=== PATIENT | male | born 1965 | race Hispanic/Latino ===

== ENCOUNTER 2021-01-29 14:26 | Emergency (ER) | payer BC, OTHER, SELFPAY ==
[2021-01-29 15:35] LABS: BASOPHILS % (AUTO) 0.4 % (0.0-5.0); EOSINOPHILS % (AUTO) 0.7 % (0.0-8.0); HEMATOCRIT 51.1 % (42-54); LYMPHOCYTES % (AUTO) 17.1 % (21.0-51.0); MEAN CORPUSCULAR HEMOGLOBIN 25.5 pg (27.0-33.0); MEAN CORPUSCULAR HGB CONC 33.1 g/dL (32.0-36.0); MONOCYTES % (AUTO) 7.6 % (3.0-13.0); NEUTROPHILS % (AUTO) 73.1 % (40.0-77.0); PLATELET COUNT (AUTO) 327 K/uL (130-400); RED BLOOD CELL COUNT(AUTO) 6.64 MIL/uL (4.50-6.20); RED CELL DISTRIBUTION WIDTH 14.9 % (11.0-15.5); WHITE BLOOD COUNT (AUTO) 16.8 K/uL (4.8-10.8)
[2021-01-29 15:43] LABS: APPEARANCE,URINE Clear (CLEAR); BILIRUBIN,URINE Negative (NEGATIVE); COLOR,URINE Yellow (YELLOW); GLUCOSE, URINE (UA) Negative (NEGATIVE); KETONES,URINE Trace mg/dL (NEGATIVE); LEUKOCYTE ESTERASE ,URINE Negative (NEGATIVE); NITRATE,URINE Negative (NEGATIVE); OCCULT BLOOD,URINE Nonhemolyzed Trace (NEGATIVE); PH,URINE 6.5 (5.0-8.0); PROTEIN,URINE POS 1+ mg/dL (NEGATIVE)
[2021-01-29 15:47] LABS: ABG OXYGEN SATURATION 57.8 % (95.0-99.0); BASE EXCESS,VENOUS BLOOD GAS 0.4 (-2.0-3.0); HCO3,VENOUS BLOOD GAS 24.7 (21.0-28.0); PCO2,VENOUS BLOOD GAS 39 (35-48); PH,VENOUS BLOOD GAS 7.421 (7.350-7.450)
[2021-01-29 15:49] LABS: INR 1.01 (0.85-1.15)
[2021-01-29 15:51] LABS: PARTIAL THROMBOPLASTIN TIME 27.1 SEC (26.3-35.5)
[2021-01-29 16:01] LABS: ALBUMIN 3.8 g/dL (3.5-5.0); BILIRUBIN,TOTAL 0.6 mg/dL (0.2-1.0); CREATININE 1.1 mg/dL (0.5-1.5); TOTAL PROTEIN, SERUM 8.8 g/dL (6.0-8.3)
[2021-01-29 16:07] LABS: POTASSIUM 2.6 mmol/L (3.5-5.1)
[2021-01-29 16:07] LABS: BACTERIA,URINE Few /HPF (None Seen); MUCUS,URINE Few LPF (None Seen); SQUAMOUS EPITHELIAL CELL,UR Few /HPF (0-2)
[2021-01-29 16:26] LABS: LYMPHOCYTES % (MANUAL) 18 % (22-44); MAN.DIFF COMMENT-IMPRESSION MANUAL DIFFERENTIAL; MONOCYTES % (MANUAL) 5 % (2-9); SEGMENTED NEUTROPHILS % 77 % (40-70)
[2021-01-29] MEDS ORDERED: POTASSIUM CHLORIDE 20 MEQ ERTAB PO ONE (16:26)
[2021-01-29 16:27] LABS: PLATELET MORPHOLOGY COMMENT ADEQUATE
[2021-01-29] MEDS ORDERED: SODIUM CHLORIDE 0.9% 1000ML 1,000 ML IV ONE (17:48)
[2021-01-29] MEDS ORDERED: ACETAMINOPHEN EXTRA STRENGTH 500 MG TABLET ONE (19:28)
== END 2021-01-29 19:35 | disposition home or self-care (01) ==
LOC: EDH 14:26
DX: S30.1XXA Contusion of abdominal wall, initial encounter (principal); R55 Syncope and collapse; G89.29 Other chronic pain; M54.2 Cervicalgia; I10 Essential (primary) hypertension; Z90.49 Acquired absence of other specified parts of digestive tract; Z86.11 Personal history of tuberculosis; V49.49XA Driver injured in collision with other motor vehicles in traffic accident, initial encounter; Y93.89 Activity, other specified; Y92.89 Other specified places as the place of occurrence of the external cause; Y99.8 Other external cause status
CPT/HCPCS: 36415; 36600; 70450; 71250; 72125; 74176; 80053; 81001; 82550; 82803; 85025; 85610; 85730; 93005; 96360; 99285; J7030

== ENCOUNTER 2022-11-07 21:05 | Emergency (ER) | payer BC, OTHER ==
[~2022-11-07] VITALS: Ht 160 cm; Wt 99.8 kg
[2022-11-07] MEDS ORDERED: CETIRIZINE HCL 5 MG TABLET PO ONE (22:49)
[2022-11-07 22:54] VITALS: BP 165/70
[2022-11-07] MEDS ORDERED: IBUP-2070 PO (22:54)
[2022-11-07] MEDS ORDERED: CYCL5TAB PO (22:54)
[2022-11-07] MEDS ORDERED: CETI10TA57 PO (22:54)
[2022-11-08] MEDS ORDERED: CETIRIZINE HCL 5 MG TABLET PO SCH (09:00)
== END 2022-11-07 22:59 | disposition home or self-care (01) ==
LOC: EDH 21:05
DX: L29.9 Pruritus, unspecified (principal); M54.50 Low back pain, unspecified; I10 Essential (primary) hypertension

== ENCOUNTER 2022-11-12 04:25 | Emergency (ER) | payer OTHER ==
[~2022-11-12] VITALS: Ht 160 cm; Wt 99.8 kg
[~2022-11-12 04:25] MED LIST: CETI10TA57 PO; CYCL5TAB PO; IBUP-2070 PO
[2022-11-12] MEDS ORDERED: PRED20TA3 PO (05:16)
[2022-11-12] MEDS ORDERED: ALBU90AE2 IH (05:16)
[2022-11-12] MEDS ORDERED: ALBUTEROL INHALER 90MCG/INH IH ONE (05:30)
[2022-11-12 06:12] VITALS: BP 139/77
== END 2022-11-12 06:30 | disposition home or self-care (01) ==
LOC: EDH 04:25
DX: J45.909 Unspecified asthma, uncomplicated (principal); Z20.822 Contact with and (suspected) exposure to COVID-19; I10 Essential (primary) hypertension; Z79.899 Other long term (current) drug therapy; Z90.89 Acquired absence of other organs; Z90.49 Acquired absence of other specified parts of digestive tract
CPT/HCPCS: 99283; 87635; 87804 ×2; C9803

== ENCOUNTER 2023-01-13 03:13 | Emergency (ER) | payer BC, OTHER ==
[~2023-01-13] VITALS: Ht 160 cm; Wt 105.7 kg
[~2023-01-13 03:13] MED LIST changes: +ALBU90AE2 IH; +PRED20TA3 PO
[2023-01-13] MEDS ORDERED: IBUPROFEN 600 MG TABLET PO ONE (03:30)
[2023-01-13] MEDS ORDERED: AMLODIPINE 5 MG TAB PO ONE (03:30)
[2023-01-13] MEDS ORDERED: LISINOPRIL 20 MG TABLET PO ONE (03:30)
[2023-01-13] MEDS ORDERED: AMLO-258 PO (03:55)
[2023-01-13] MEDS ORDERED: LISI20TA24 PO (03:55)
[2023-01-13] MEDS ORDERED: ALBU6.7H14 IH (03:55)
[2023-01-13 04:24] VITALS: BP 161/91
== END 2023-01-13 04:42 | disposition home or self-care (01) ==
LOC: EDH 03:13
DX: I16.0 Hypertensive urgency (principal); R51.9 Headache, unspecified; I10 Essential (primary) hypertension; J45.909 Unspecified asthma, uncomplicated; Z79.899 Other long term (current) drug therapy; Z90.49 Acquired absence of other specified parts of digestive tract
CPT/HCPCS: 70450

== ENCOUNTER 2023-02-04 23:09 | Emergency (ER) | payer BC ==
[~2023-02-04] VITALS: Ht 160 cm; Wt 97.2 kg
[~2023-02-04 23:09] MED LIST changes: +ALBU6.7H14 IH; +AMLO-258 PO; +LISI20TA24 PO
[2023-02-05 00:42] LABS: BASOPHILS % (AUTO) 0.4 % (0.0-5.0); EOSINOPHILS % (AUTO) 1.3 % (0.0-8.0); HEMATOCRIT 41.2 % (42-54); LYMPHOCYTES % (AUTO) 19.8 % (21.0-51.0); MEAN CORPUSCULAR HEMOGLOBIN 25.3 pg (27.0-33.0); MEAN CORPUSCULAR HGB CONC 32.5 g/dL (32.0-36.0); MEAN CORPUSCULAR VOLUME 77.9 fL (79-99); PLATELET COUNT (AUTO) 271 K/uL (130-400); RED BLOOD CELL COUNT(AUTO) 5.29 MIL/uL (4.50-6.20); RED CELL DISTRIBUTION WIDTH 13.4 % (11.0-15.5); WHITE BLOOD COUNT (AUTO) 13.6 K/uL (4.8-10.8)
[2023-02-05 00:57] LABS: CREATININE 1.2 mg/dL (0.5-1.5); POTASSIUM 3.5 mmol/L (3.5-5.1)
[2023-02-05 01:05] LABS: INR 0.97 (0.85-1.15); PROTHROMBIN TIME 10.6 SEC (9.6-11.6)
[2023-02-05 01:06] LABS: PARTIAL THROMBOPLASTIN TIME 28.8 SEC (26.3-35.5)
[2023-02-05 01:09] LABS: TOTAL PROTEIN, SERUM 6.8 g/dL (6.0-8.3)
[2023-02-05 01:14] LABS: APPEARANCE,URINE CLEAR (CLEAR); BILIRUBIN,URINE NEGATIVE (NEGATIVE); COLOR,URINE YELLOW (YELLOW); GLUCOSE, URINE (UA) NEGATIVE (NEGATIVE); KETONES,URINE NEGATIVE (NEGATIVE); LEUKOCYTE ESTERASE ,URINE NEGATIVE Leu/uL (NEGATIVE); NITRATE,URINE NEGATIVE (NEGATIVE); OCCULT BLOOD,URINE NEGATIVE (NEGATIVE); PROTEIN,URINE 10 mg/dL (NEGATIVE); UROBILINOGEN,URINE 3 mg/dL (0.2-1.0)
[2023-02-05 01:20] LABS: BACTERIA,URINE FEW /HPF (None Seen); MUCUS,URINE RARE LPF (None Seen); SQUAMOUS EPITHELIAL CELL,UR RARE /HPF (0-2)
[2023-02-05 01:28] LABS: B-TYPE NATRIURETIC PEPTIDE 18 pg/mL (0-100)
[2023-02-05 02:04] VITALS: BP 139/82
== END 2023-02-05 02:11 | disposition home or self-care (01) ==
LOC: EDH 23:09
DX: R60.0 Localized edema (principal); I83.893 Varicose veins of bilateral lower extremities with other complications; I11.0 Hypertensive heart disease with heart failure; I50.9 Heart failure, unspecified; E78.5 Hyperlipidemia, unspecified; J45.909 Unspecified asthma, uncomplicated; Z79.1 Long term (current) use of non-steroidal anti-inflammatories (NSAID); Z79.52 Long term (current) use of systemic steroids; Z79.899 Other long term (current) drug therapy
CPT/HCPCS: 36415; 71045; 80053; 81001; 82550; 83880; 84484; 85025; 85378; 85610; 85730; 93005; 93970

== ENCOUNTER 2024-02-22 03:03 | Emergency (ER) | payer BC ==
[2024-02-22 03:29] LABS: BASOPHILS # (AUTO) 0.04 K/uL (0.00-0.20); BASOPHILS % (AUTO) 0.4 % (0.0-5.0); EOSINOPHILS # (AUTO) 0.19 K/uL (0.00-0.70); EOSINOPHILS % (AUTO) 1.7 % (0.0-8.0); HEMATOCRIT 39.9 % (42-54); IMMATURE GRANULOCYTE ABSOLUTE 0.05 K/uL (0-1); LYMPHOCYTES # (AUTO) 3.1 K/uL (1.0-4.8); LYMPHOCYTES % (AUTO) 27.4 % (21.0-51.0); MEAN CORPUSCULAR HEMOGLOBIN 25.8 pg (27.0-33.0); MEAN CORPUSCULAR HGB CONC 34.1 g/dL (32.0-36.0); MEAN CORPUSCULAR VOLUME 75.7 fL (79-99); MONOCYTES # (AUTO) 1.1 K/uL (0.1-1.0); MONOCYTES % (AUTO) 9.5 % (3.0-13.0); NEUTROPHILS # (AUTO) 6.9 K/uL (1.8-7.7); NEUTROPHILS % (AUTO) 60.6 % (40.0-77.0); PLATELET COUNT (AUTO) 294 K/uL (130-400); RED BLOOD CELL COUNT(AUTO) 5.27 MIL/uL (4.50-6.20); RED CELL DISTRIBUTION WIDTH 13.6 % (11.0-15.5); WHITE BLOOD COUNT (AUTO) 11.3 K/uL (4.8-10.8)
[2024-02-22 03:51] LABS: ALBUMIN 3.1 g/dL (3.5-5.0); BILIRUBIN,TOTAL 0.3 mg/dL (0.2-1.0); CREATININE 1.2 mg/dL (0.5-1.3); MAGNESIUM 1.8 mg/dL (1.80-2.40); TOTAL PROTEIN, SERUM 6.9 g/dL (6.0-8.3)
[2024-02-22 03:57] LABS: POTASSIUM 2.9 mmol/L (3.5-5.1)
[2024-02-22] MEDS: POTASSIUM BICARB/CIT AC 25 MEQ TABLET.EFF PO ONE (04:18)
[2024-02-22] MEDS: 0.9%NACL 1000ML 1,000 ML IV ONE ×2 (04:18→05:55)
[2024-02-22] MEDS: POTASSIUM CHLORIDE 10MEQ/100ML 100 ML IV ONE (04:19)
[2024-02-22 09:27] VITALS: BP 122/71; PULSE 70; RESP 18; O2SAT 97
== END 2024-02-22 09:42 | disposition home or self-care (01) ==
LOC: EDH 03:03
DX: E87.6 Hypokalemia (principal); R74.8 Abnormal levels of other serum enzymes; J45.909 Unspecified asthma, uncomplicated; I11.0 Hypertensive heart disease with heart failure; I50.9 Heart failure, unspecified; Z79.899 Other long term (current) drug therapy
CPT/HCPCS: 99283; 96360; 96361; 82550 ×2; 83735; 80053; 85025; 36415; J7030; J3480